=== PATIENT | female | born 1945 | race Hispanic/Latino ===

== ENCOUNTER → 2019-12-31 | Outpatient (CLI) | payer MEDICARE ==
[~2019-12-31] MED LIST: IOHEXOL-350 75 ML VIAL IV ONE
== END | disposition home or self-care (01) ==
LOC: RAH 07:42
PROVIDERS: ATTEND Internal Medicine Gastroenterology
DX: J98.11 Atelectasis (principal); M25.80 Other specified joint disorders, unspecified joint; I70.0 Atherosclerosis of aorta; R63.4 Abnormal weight loss; Z90.49 Acquired absence of other specified parts of digestive tract
CPT/HCPCS: 74178; Q9967

== ENCOUNTER → 2021-06-22 | Outpatient (CLI) | payer MEDICARE | END | disposition home or self-care (01) | LOC: RAH 12:51 | PROVIDERS: ATTEND Orthopaedic Surgery | DX: M77.8 Other enthesopathies, not elsewhere classified (principal); M19.011 Primary osteoarthritis, right shoulder | CPT/HCPCS: 73221 ==

== ENCOUNTER 2022-01-20 09:00 | Observation (INO) | payer MEDICARE ==
[~2022-01-20] VITALS: Ht 152.4 cm; Wt 43.4 kg
[2022-01-20 15:06] LABS: BASOPHILS % (AUTO) 0.6 % (0.0-5.0); EOSINOPHILS % (AUTO) 1.2 % (0.0-8.0); HEMATOCRIT 39.7 % (36-48); LYMPHOCYTES % (AUTO) 34.1 % (21.0-51.0); MEAN CORPUSCULAR HEMOGLOBIN 32.8 pg (27.0-33.0); MEAN CORPUSCULAR HGB CONC 34.3 g/dL (32.0-36.0); MEAN CORPUSCULAR VOLUME 95.7 fL (79-99); MONOCYTES % (AUTO) 8.5 % (3.0-13.0); NEUTROPHILS % (AUTO) 55.4 % (40.0-77.0); PLATELET COUNT (AUTO) 213 K/uL (130-400); RED BLOOD CELL COUNT(AUTO) 4.15 MIL/uL (4.00-5.50); WHITE BLOOD COUNT (AUTO) 5.1 K/uL (4.8-10.8)
[2022-01-20 15:22] LABS: INR 1.01 (0.85-1.15)
[2022-01-20 15:24] LABS: ALBUMIN 3.9 g/dL (3.5-5.0); CARBON DIOXIDE 30 mmol/L (21-32); CHLORIDE 96 mmol/L (101-111); CREATININE 0.7 mg/dL (0.5-1.5); GLOMERULAR FILTR. RATE CALC 86 mL/min (>60); GLUCOSE,RANDOM 133 mg/dL (70-105); POTASSIUM 3.7 mmol/L (3.5-5.1); SODIUM SERUM 130 mmol/L (136-145); UREA NITROGEN, BLOOD 8 mg/dL (7-18)
[2022-01-20 15:30] LABS: APPEARANCE,URINE CLEAR (CLEAR); BILIRUBIN,URINE NEGATIVE (NEGATIVE); COLOR,URINE YELLOW (YELLOW); GLUCOSE, URINE (UA) NEGATIVE (NEGATIVE); KETONES,URINE NEGATIVE (NEGATIVE); LEUKOCYTE ESTERASE ,URINE NEGATIVE (NEGATIVE); NITRATE,URINE NEGATIVE (NEGATIVE); OCCULT BLOOD,URINE NEGATIVE (NEGATIVE); PROTEIN,URINE NEGATIVE (NEGATIVE); UROBILINOGEN,URINE 0.2 mg/dL (0.2-1.0)
[2022-01-20 15:32] LABS: CRP QUANTITATIVE < 2.00 mg/L (0.00-9.0)
[2022-01-20 17:04] VITALS: BP 175/86
[2022-01-20] MEDS ORDERED: CHOL100046 PO (17:30)
[2022-01-20] MEDS ORDERED: SIMV-43 PO (17:30)
[2022-01-20] MEDS ORDERED: KETO5DRO82 OD (17:30)
[2022-01-20] MEDS ORDERED: MULT-1367 PO (17:30)
[2022-01-20] MEDS ORDERED: BENA10TA77 PO (17:30)
[2022-01-20] MEDS ORDERED: CALC-1209 PO (17:30)
[2022-01-20] MEDS ORDERED: CARB200T6 PO (17:30)
[2022-01-20] MEDS ORDERED: CYCL30DR OU (17:30)
[2022-01-20] MEDS ORDERED: LATA7.5D OD (17:30)
[2022-01-23] VITALS (24 sets, daily range): BP systolic 125–168; BP diastolic 57–80
[2022-01-23] MEDS: CEFAZOLIN SODIUM 1 GM VIAL IVP SCH ×4 (06:00→22:49)
[2022-01-23] MEDS ORDERED: LACTATED RINGERS 1000ML 1,000 ML IV ONE (06:29)
[2022-01-23] MEDS ORDERED: 0.9%NACL 1000ML 1,000 ML IV ONE (07:05)
[2022-01-23] MEDS ORDERED: ROPIVACAINE 0.5% 5MG/ML 30ML IJ ONE (07:14)
[2022-01-23] MEDS ORDERED: PROPOFOL 1000 MG/100 ML 100 ML IV ONE (07:14)
[2022-01-23] MEDS ORDERED: FAMOTIDINE 20MG VIAL IV ONE (07:15)
[2022-01-23] MEDS ORDERED: SUCCINYLCHOLINE CHLORIDE 20 MG/ML 10 ML VIAL ONE (07:16)
[2022-01-23] MEDS ORDERED: PROPOFOL 10 MG/ML 20ML VIAL IV ONE (07:17)
[2022-01-23] MEDS ORDERED: GLYCOPYRROLATE 1 MG/5 ML SYRINGE ONE (07:17)
[2022-01-23] MEDS ORDERED: FENTANYL CITRATE PF 50 MCG/1 ML 2ML VIAL ONE (07:17)
[2022-01-23] MEDS ORDERED: ROCURONIUM 10MG/1ML SYR 10 MG/ML ML ONE (07:17)
[2022-01-23] MEDS ORDERED: TRANEXAMIC ACID 1000MG/10ML ONE (08:10)
[2022-01-23] MEDS ORDERED: ONDANSETRON 4MG INJ ONE ×2 (08:41→09:49)
[2022-01-23] MEDS ORDERED: NEOSTIGMINE 5MG/5ML SYR IV ONE (09:44)
[2022-01-23] MEDS ORDERED: FE FUMARATE/FA/MV, MIN COMB#15 1 TAB PO PRN (10:00)
[2022-01-23] MEDS ORDERED: POTASSIUM CHLORIDE 20MEQ/100ML 100 ML IV PRN (10:00)
[2022-01-23] MEDS ORDERED: LIDOCAINE HCL-MPF 1% 2ML VIAL IV PRN (10:00)
[2022-01-23] MEDS ORDERED: POTASSIUM CHLORIDE 10% ELIXIR 20 MEQ/15 ML UDCUP PO PRN (10:00)
[2022-01-23] MEDS ORDERED: KCL 20 MEQ ERTAB PO PRN (10:00)
[2022-01-23] MEDS ORDERED: CALCIUM CARB 500MG PO PRN (10:00)
[2022-01-23] MEDS ORDERED: ONDANSETRON 4MG INJ IVP PRN (10:00)
[2022-01-23] MEDS: 0.9%NACL 1000ML 1,000 ML IV SCH ×3 (10:00→21:00)
[2022-01-23] MEDS ORDERED: ENALAPRILAT DIHYDRATE 1.25MG/ML 1ML VIAL IV ONE (10:44)
[2022-01-23] MEDS: HYDROCODONE/ACETAMINOPHEN 5/325 MG TAB PO PRN ×2 (13:46→20:55)
[2022-01-23] MEDS: KETOROLAC 15MG/ML VIAL (15MG/ML) IV PRN ×2 (17:02→22:49)
[2022-01-23] MEDS ORDERED: BENZOCAINE/MENTH/CETYLPYRD CL 1 EACH LOZENGE MM PRN (19:30)
[2022-01-23] MEDS: CARBAMAZEPINE 200 MG TABLET PO SCH (20:54)
[2022-01-23] MEDS ORDERED: LATANOPROST 2.5 ML DROPS OD SCH (21:00)
[2022-01-23] MEDS: RESTASIS OU SCH (21:00)
[2022-01-23] MEDS: KETOROLAC OPTH 0.5% 5ML DROPS OD SCH (22:24)
[2022-01-24] MEDS: TRAMADOL HCL 50 MG TABLET PO PRN ×2 (00:57→12:09)
[2022-01-24 03:22] VITALS: BP 127/60
[2022-01-24 05:10] LABS: MEAN CORPUSCULAR HEMOGLOBIN 32.9 pg (27.0-33.0); MEAN CORPUSCULAR HGB CONC 35.5 g/dL (32.0-36.0); MEAN CORPUSCULAR VOLUME 92.7 fL (79-99); RED BLOOD CELL COUNT(AUTO) 3.13 MIL/uL (4.00-5.50); RED CELL DISTRIBUTION WIDTH 12.1 % (11.0-15.5); WHITE BLOOD COUNT (AUTO) 6.9 K/uL (4.8-10.8)
[2022-01-24 05:27] LABS: CREATININE 0.6 mg/dL (0.5-1.5); POTASSIUM 3.7 mmol/L (3.5-5.1)
[2022-01-24] MEDS: 0.9%NACL 1000ML 1,000 ML IV SCH (06:00)
[2022-01-24 08:00] VITALS: BP 139/70
[2022-01-24] MEDS ORDERED: CA 600MG+VIT D 400 UNIT TAB 1 TAB TABLET PO SCH (08:00)
[2022-01-24] MEDS: RESTASIS OU SCH (09:00)
[2022-01-24] MEDS ORDERED: POLYETHYLENE GLYCOL 3350 17 GM POWD.PACK PO SCH (09:00)
[2022-01-24] MEDS ORDERED: MULTIVITAMIN TABLET PO SCH (09:00)
[2022-01-24] MEDS ORDERED: **HM** VIT D3 25MCG PO SCH (09:00)
[2022-01-24] MEDS ORDERED: BENAZEPRIL HCL 10 MG TABLET PO SCH (09:00)
[2022-01-24] MEDS ORDERED: SIMVASTATIN 20 MG TABLET PO SCH (09:00)
[2022-01-24] MEDS: CARBAMAZEPINE 200 MG TABLET PO SCH (09:24)
[2022-01-24] MEDS: KETOROLAC OPTH 0.5% 5ML DROPS OD SCH (09:30)
[2022-01-24 11:48] VITALS: BP 126/56
[2022-01-26] MEDS ORDERED: BISACODYL 10 MG SUPP.RECT RC PRN (10:00)
== END 2022-01-24 15:50 | disposition home or self-care (01) ==
LOC: DAHIP 01-23 06:30 → EDSTATUS 01-23 09:00 → 4AH 01-23 11:27
PROVIDERS: ADMIT Student in an Organized Health Care Education/Training Program; ATTEND Student in an Organized Health Care Education/Training Program
DX: M12.811 Other specific arthropathies, not elsewhere classified, right shoulder (principal); Z20.822 Contact with and (suspected) exposure to COVID-19; M75.101 Unspecified rotator cuff tear or rupture of right shoulder, not specified as traumatic; Z79.899 Other long term (current) drug therapy; Z98.890 Other specified postprocedural states
CPT/HCPCS: 82040; 80048 ×2; 85025; 85610; 87088; 84134; 86140; 87426; 81003; 36415 ×3; 87641; 23472; 96374; 96376; 96375 ×2; 76942; 64415; 84295; 73030; 85027; 97161; 97530 ×2; G0378 ×28; G0379; A4663; J7030 ×2; A4565; C1776; J7120; J3490 ×4; J3010; J0690 ×4; J2710; J0330; J2704 ×2; J2405 ×3; J2795; J1885 ×2; G0168; A4930 ×2; A6254; A5120; A4215; A4223; A4222; A4221; A4600

== ENCOUNTER 2023-07-18 14:07 | Emergency (ER) | payer MEDICARE ==
[~2023-07-18] VITALS: Ht 152.4 cm; Wt 43.1 kg
[~2023-07-18 14:07] MED LIST changes: +BENA10TA77 PO; +CALC-1209 PO; +CARB200T6 PO; +CHOL100046 PO; +CYCL30DR OU; -IOHEXOL-350 75 ML VIAL IV ONE; +KETO5DRO82 OD; +LATA7.5D OD; +MULT-1367 PO; +SIMV-43 PO
[2023-07-18] MEDS ORDERED: ACETAMINOPHEN 500 MG TABLET PO ONE (18:00)
[2023-07-18 18:26] VITALS: BP 140/73; PULSE 78; RESP 17; O2SAT 99
== END 2023-07-18 18:27 | disposition home or self-care (01) ==
LOC: EDH 14:07
DX: S70.01XA Contusion of right hip, initial encounter (principal); Z79.621 Long term (current) use of calcineurin inhibitor; Z79.899 Other long term (current) drug therapy; W18.39XA Other fall on same level, initial encounter; Y93.89 Activity, other specified; Y92.89 Other specified places as the place of occurrence of the external cause; Y99.8 Other external cause status
CPT/HCPCS: 72170

== ENCOUNTER 2023-11-29 22:29 | Emergency (ER) | payer MEDICARE ==
[~2023-11-29] VITALS: Ht 152.4 cm; Wt 42.2 kg
[2023-11-29 23:40] VITALS: BP 179/84; PULSE 68; RESP 18
[2023-11-29] MEDS ORDERED: MELO-108 PO (23:56)
== END 2023-11-30 00:52 | disposition home or self-care (01) ==
LOC: EDH 22:29
DX: S00.11XA Contusion of right eyelid and periocular area, initial encounter (principal); S00.12XA Contusion of left eyelid and periocular area, initial encounter; M54.50 Low back pain, unspecified; G40.909 Epilepsy, unspecified, not intractable, without status epilepticus; M81.0 Age-related osteoporosis without current pathological fracture; Z98.890 Other specified postprocedural states; Z79.899 Other long term (current) drug therapy; W18.39XA Other fall on same level, initial encounter; Y93.89 Activity, other specified; Y92.008 Other place in unspecified non-institutional (private) residence as the place of occurrence of the external cause; Y99.8 Other external cause status
CPT/HCPCS: 70450; 70486; 72125; 72128; 72131